=== PATIENT | male | born 1995 | race Caucasian/White ===

== ENCOUNTER 2017-04-10 05:25 | Emergency (ER) | payer SELFPAY ==
[2017-04-10 06:22] LABS: ABSOLUTE BASOPHILS # (AUTO) 0.1 10^3/uL (0.0-0.2); ABSOLUTE EOSINOPHILS # (AUTO) 0.2 10^3/uL (0.0-0.6); ABSOLUTE LYMPHOCYTES (AUTO) 2.1 10^3/uL (0.5-4.7); ABSOLUTE MONOCYTES (AUTO) 0.8 10^3/uL (0.1-1.4); ABSOLUTE NEUT (AUTO) 8.8 10^3/uL (1.7-8.2); BASOPHILS % (AUTO) 0.4 % (0-2); EOSINOPHILS % (AUTO) 1.5 % (0-6); HEMATOCRIT 43.7 % (37.9-51.0); HEMOGLOBIN 14.7 g/dL (13.5-17.0); HGB HCT DIFFERENCE 0.4; LYMPHOCYTES % (AUTO) 17.5 % (13-45); MEAN CORPUSCULAR HGB CONC 33.7 g/dL (32.0-36.0); MEAN CORPUSCULAR VOLUME 86 fl (80-97); RED BLOOD COUNT 5.09 10^6/uL (4.35-5.55); RED CELL DISTRIBUTION WIDTH 12.9 % (11.5-14.0); SEGMENTED NEUTROPHILS % (AUTO) 73.6 % (42-78); WHITE BLOOD COUNT 11.9 10^3/uL (4.0-10.5)
[2017-04-10 06:35] LABS: ALANINE AMINOTRANSFERASE 29 U/L (21-72); ALBUMIN 4.4 g/dL (3.5-5.0); ALKALINE PHOSPHATASE 61 U/L (38-126); ANION GAP 12 (5-19); ASPARTATE AMINO TRANSFERASE 16 U/L (17-59); BILIRUBIN,DIRECT 0.2 mg/dL (0.0-0.4); BILIRUBIN,TOTAL 0.6 mg/dL (0.2-1.3); BLOOD UREA NITROGEN 7 mg/dL (7-20); CALCIUM 9.3 mg/dL (8.4-10.2); CARBON DIOXIDE 24 mmol/L (22-30); CHLORIDE 104 mmol/L (98-107); CREATININE RESULT 1.14 mg/dL (0.52-1.25); GLUCOSE 101 mg/dL (75-110); POTASSIUM 3.5 mmol/L (3.6-5.0); SODIUM 139.5 mmol/L (137-145)
[2017-04-10 06:36] LABS: ALCOHOL < 10 mg/dL (NONE DETECTED)
--- NOTE | 2017-04-10 07:20 | ER Document Report ---
ED General - General Chief Complaint: Suicidal Ideation Stated Complaint: SUICIDAL IDEATION Time Seen by Provider: 04/10/17 06:06 Mode of Arrival: Ambulatory Information source: Patient TRAVEL OUTSIDE OF THE [place] IN LAST 30 DAYS: No - HPI Notes: Patient is a 21-year-old male presents emergency department with report of depression with suicidal ideation that he has had for several months. The patient states he was in the for 2-1/2 years and got out of the several months ago. The patient reports the last week he has been staying in a motel and has no place to stay now. The patient states he has family in [place]. He reports a history of depression and a previous psychiatric hospitalization in the past. The patient currently does not have a job, stating that he was working temporary side jobs up until recently about a month ago. The patient denies any homicidal ideation or hallucinations. He states he has previously been on antidepressants in the past but currently is not. No overdose. No history of alcohol or drug use or abuse. Patient reports generalized pain but denies any recent injury and has no focal area of any pain. Past Medical History - General Information source: Patient - Social History Smoking Status: Never Smoker Frequency of alcohol use: None Drug Abuse: None Family History: Reviewed & Not Pertinent Patient has suicidal ideation: Yes Patient has homicidal ideation: Yes Renal/ Medical History: Denies: Hx Peritoneal Dialysis Review of Systems - Review of Systems Notes: REVIEW OF SYSTEMS: CONSTITUTIONAL : Denies fever, chills, or sweats. Denies recent illness. EENT: Denies eye, ear, throat, or mouth pain or symptoms. Denies nasal or sinus congestion or discharge. Denies throat, tongue, or mouth swelling or difficulty swallowing. CARDIOVASCULAR: Denies chest pain. Denies palpitations or racing or irregular heart beat. Denies ankle edema. RESPIRATORY: Denies cough, cold, or chest congestion. Denies shortness of breath, difficulty breathing, or wheezing. GASTROINTESTINAL: Denies abdominal pain or distention. Denies nausea, vomiting , or diarrhea. Denies blood in vomitus, stools, or per rectum. Denies black, tarry stools. Denies constipation. GENITOURINARY: Denies difficulty urinating, painful urination, burning, frequency, blood in urine, or discharge. MUSCULOSKELETAL: Denies back or neck pain or stiffness. Denies joint pain or swelling. SKIN: Denies rash, lesions or sores. HEMATOLOGIC : Denies easy bruising or bleeding. LYMPHATIC: Denies swollen, enlarged glands. NEUROLOGICAL: Denies confusion or altered mental status. Denies passing out or loss of consciousness. Denies dizziness or lightheadedness. Denies headache. Denies weakness or paralysis or loss of use of either side. Denies problems with gait or speech. Denies sensory loss, numbness, or tingling. Denies seizures. PSYCHIATRIC: Denies anxiety or stress. Denies homicidal ideation. ALL OTHER SYSTEMS REVIEWED AND NEGATIVE. Dictation was performed using Stream[employer] recognition software Physical Exam - Vital signs Vitals: Temp Pulse Resp BP Pulse Ox 98.4 F 100 14 137/95 H 96 04/10/17 05:28 04/10/17 05:28 04/10/17 05:28 04/10/17 05:28 04/10/17 05:28 - Notes Notes: PHYSICAL EXAMINATION: GENERAL: Well-appearing, well-nourished and in no acute distress. HEAD: Atraumatic, normocephalic. EYES: Pupils equal round and reactive to light, extraocular movements intact, sclera anicteric, conjunctiva are normal. ENT: Nares patent, oropharynx clear without exudates. Moist mucous membranes. NECK: Normal range of motion, supple without lymphadenopathy LUNGS: Breath sounds clear to auscultation bilaterally and equal. No wheezes rales or rhonchi. HEART: Regular rate and rhythm without murmurs ABDOMEN: Soft, nontender, nondistended abdomen. No guarding, no rebound. No masses appreciated. Musculoskeletal: Normal range of motion, no pitting or edema. No cyanosis. Patient describes diffuse pain, but there is nothing reproducible. No erythema or swelling. NEUROLOGICAL: Cranial nerves grossly intact. Normal speech, normal gait. Normal sensory, motor exams PSYCH: Flat affect. Low voice. Reports suicidal ideation without specific plan. Denies homicidal ideation or hallucinations. SKIN: Warm, Dry, normal turgor, no rashes or lesions noted. Patient describes diffuse pain, but there is no reproducible pain and a Course - Re-evaluation Re-evalutation: 04/10/17 07:20 Patient will be medically cleared. Vital signs are stable. Psychiatric consultation will be ordered. IVC papers are filed. Lab work is pending. - Vital Signs Vital signs: Temp Pulse Resp BP Pulse Ox 98.4 F 100 14 137/95 H 96 04/10/17 05:28 04/10/17 05:28 04/10/17 05:28 04/10/17 05:28 04/10/17 05:28 - Laboratory Result Diagrams: 04/10/17 06:12 04/10/17 06:12 Laboratory results interpreted by me: 04/10/17 04/10/17 06:12 06:12 WBC 11.9 H Absolute Neutrophils 8.8 H Potassium 3.5 L AST 16 L Salicylates < 1.0 L Acetaminophen < 10 L - EKG Interpretation by Mt EKG shows normal: Sinus rhythm Additional EKG results interpreted by me: 04/10/17 07:21 EKG as interpreted by sd showed normal sinus rhythm heart rate of 81. There is no gross evidence for acute CT or ischemia identified. Discharge - Discharge Clinical Impression: Suicidal ideation Depression Qualifiers: Depression Type: unspecified Qualified Code(s): F32.9 - Major depressive disorder, single episode, unspecified
[2017-04-10 08:02] LABS: APPEARANCE,URINE SLIGHTLY-CLOUDY; BILIRUBIN,URINE NEGATIVE (NEGATIVE); GLUCOSE, URINE NEGATIVE (NEGATIVE); KETONES,URINE TRACE mg/dL (NEGATIVE); LEUKOCYTE ESTERASE,URINE TRACE (NEGATIVE); NITRITE,URINE NEGATIVE (NEGATIVE); PROTEIN,URINE NEGATIVE (NEGATIVE); URINE SPECIFIC GRAVITY 1.015; UROBILINOGEN,URINE NEGATIVE mg/dL (<2.0)
--- NOTE | 2017-04-10 08:08 | EKG REPORT ---
SEVERITY:- NORMAL ECG - SINUS RHYTHM : Confirmed by: Jeff Edwards MD 10-Apr-2017 08:07:34
[2017-04-10 08:25] LABS: URINE BARBITURATES SCREEN NEGATIVE; URINE METHADONE SCREEN NEGATIVE; URINE OPIATES LOW NEGATIVE; URINE PHENCYCLIDINE SCREEN NEGATIVE
--- NOTE | 2017-04-10 16:29 | ER Document Report ---
Doctor's Note Notes: 04/10/17 16:29 04/10/17 19:09 As the rounding physician for our psychiatric patients, I have reviewed the chart, vitals, lab work. Patient has been examined and noted to be stable, pt was resting comfortably throughout the day . Mental health offered suggestions for meds which will be followed
[2017-04-10] MEDS ORDERED: NAPROXEN 250 MG TABLET PO ONE (17:21)
[2017-04-10] MEDS ORDERED: HYDROXYZINE PAMOATE 50 MG CAPSULE PO PRN (18:00)
[2017-04-10] MEDS ORDERED: NICOTINE 21 MG/24 HR PATCH.TD24 TD ONE (18:00)
[2017-04-10] MEDS ORDERED: FLUOXETINE HCL 20 MG CAPSULE PO SCH (22:00)
--- NOTE | 2017-04-11 06:53 | ER Document Report ---
ED Psych Disorder / Suicide - General Chief Complaint: Suicidal Ideation Stated Complaint: SUICIDAL IDEATION Time Seen by Provider: 04/10/17 06:06 Mode of Arrival: Ambulatory Information source: Patient TRAVEL OUTSIDE OF THE [place] IN LAST 30 DAYS: No - HPI Patient complains to provider of: Suicidal ideation Onset: Other Onset was: Cannot confirm Suicide Risk Factors: Depressed, Lack of social support, Male, Other mental health dx. Situational problems related to: Lost job, Other - homeless Associated symptoms: Depressed - Initially, Flat affect - Initially, Irritable - Later in the evening around dinner time Similar symptoms previously: No - Unsure Recently seen / treated by doctor: No - Unsure Notes: Patient is a 21 year old male who presented to the ED late evening/parish nurse due to SI. ED Physician petitioned for IVC. Patient is difficult to arouse this morning. His eyelids appear swollen and were heavy. He was unable to stay awake to even answer yes/no to questions. Patient slept throughout most of the day. Attending nurse noted she had woke him a couple different times, he would arouse minimally, and then go back to sleep. Around late afternoon attempted consult again. Patient was startled when he first woke up. His eyelids were still swollen (not as much) and heavy, and his eyes were bloodshot. He was able to stay awake with continued prompting. He denied taking any kind of medication and had not been administered any while in the ED so the reason for the significant lethargy was unknown. Patient stated he doesn't sleep much due to anxiety and depression. He denied having a current outpatient MH provider or being on medications at this time. He identified when he was in the [place] had his last prescribed regimen was Gabapentin, Prozac, and Clonidine. He could not recall other medications he had been on previously. He acknowledged he had gotten into trouble for underage drinking while in the [place], had been prescribed medications and was late for a check in, which resulted in being MJP'd. He responded with "not really" when asked about current thoughts of wanting to harm/hurt/kill self. He denied any previous SI attempts. He refused collateral, noted he is from [place] which is where family is, and there was no emergency contact provided. He denied having VA Benefits or any other insurance. He stated if he were discharged he would stay in his car until he loses that too. He reported he had not been to the local homeless custodial and said he would not utilize it now. Later evening around dinner time patient became irritable and demanding. He stated his anxiety is severe and staying in the ED would increase it. He noted he had been out of it earlier and was adamant he had not taken any drugs, even O -T-C, prior to arrival. He stated Prozac 20MG will not do anything for him, commented on how a large dosage of Percocet does nothing for him, and stated Adderall is what helps him calm down and focus. He admitted to self medicating at times but not consistently. Patient appeared more restless at this later time in the day. Patient was not easily aroused throughout the day. He at times became alert. Later in the day it was obvious he was alert and oriented to place, person, and situation. He had to ask the time of day. He presented depressed with flat affect initially, although lethargic for unknown reason. Later in the day he appeared irritable and restless. He was able to be redirected. He said "not really" to current SI and denied HI. He did not appear to be responding to internal stimuli AEB once alert and oriented his fair eye contact, ability to stay on topic, and carrying on dialogue conversation. Thought processes were linear by dinner time. Conversational speech was initially mumbled and difficult to understand, later in the day it was WNL for rate, tone, and prosody. Intellectual abilities are estimated to be average. Insight, judgment and impulse control are poor AEB lethargy for most of the day. Diagnosis: 311 (F32.9) Unspecified Depressive Disorder Impression/Plan: Recommendation to maintain IVC. Patient is lethargic as if under the influence or coming down from a substance, however UDS negative for everything. He was initially unable to engage in evaluation. He slept most of the day. He would not provide collateral, no emergency contact listed, so no additional information obtained. Will reassess in the morning since he became more alert and oriented by dinner time. Consulted with Dr. Barnard regarding the management and care of patient. - Related Data Allergies/Adverse Reactions: No Known Allergies Allergy (Unverified 04/10/17 16:29) Home Medications: Current Home Medications Unobtainable [Unobtainable] 04/10/17 [History] Past Medical History - General Information source: Patient - Social History Smoking Status: Current Every Day Smoker Chew tobacco use (# tins/day): No Frequency of alcohol use: Occasional Drug Abuse: None Family History: Reviewed & Not Pertinent Patient has suicidal ideation: Yes Patient has homicidal ideation: Yes Renal/ Medical History: Denies: Hx Peritoneal Dialysis Psychiatric Medical History: Reports: Hx Bipolar Disorder, Hx Depression Physical Exam - Vital signs Vitals: Temp Pulse Resp BP Pulse Ox 98.4 F 100 14 137/95 H 96 04/10/17 05:28 04/10/17 05:28 04/10/17 05:28 04/10/17 05:28 04/10/17 05:28 Course - Vital Signs Vital signs: Temp Pulse Resp BP Pulse Ox 97.6 F 63 16 107/67 97 04/10/17 16:20 04/10/17 16:20 04/10/17 16:20 04/10/17 16:20 04/10/17 16:20 - Laboratory Result Diagrams: 04/10/17 06:12 04/10/17 06:12 Laboratory results interpreted by me: 04/10/17 04/10/17 04/10/17 06:12 06:12 07:40 WBC 11.9 H Absolute Neutrophils 8.8 H Potassium 3.5 L AST 16 L Urine Ketones TRACE H Ur Leukocyte Esterase TRACE H Salicylates < 1.0 L Acetaminophen < 10 L Discharge - Discharge Clinical Impression: Suicidal ideation Depression Qualifiers: Depression Type: unspecified Qualified Code(s): F32.9 - Major depressive disorder, single episode, unspecified
--- NOTE | 2017-04-11 08:22 | ER Document Report ---
Doctor's Note Notes: 04/11/17 08:21 Patient seen and evaluated by me. Vital signs reviewed. Patient is resting comfortably. Patient denies any specific complaint. Awaiting mental health recommendations.
--- NOTE | 2017-04-11 11:09 | ER Document Report ---
Doctor's Note Notes: 04/11/17 11:07 Patient seen by mental health. Per their request patient be discharged home with appropriate follow-up. Patient will be given prescription for Prozac 20 mg daily. Discharge - Discharge Clinical Impression: Suicidal ideation Depression Qualifiers: Depression Type: unspecified Qualified Code(s): F32.9 - Major depressive disorder, single episode, unspecified Condition: Fair Disposition: HOME, SELF-CARE Additional Instructions: DEPRESSION: Your evaluation reveals that you have mental depression. While symptoms may be vague, they often include disturbance of sleep, fatigue, loss of appetite , and general loss of interest in life. While depression may be a side effect of drugs, or a reaction to a major change in your life, many cases have no known cause. If depression is acute, and related to a major loss in your life, you can expect it to clear completely with time. If you have been depressed a long time , are prone to repeated bouts of depression or low mood, or have been thinking of suicide, get help. Depression can be treated with anti-depressant medication and counselling. Long-term depression will often take a few weeks to clear, even with appropriate medication. Follow-up care is important. SUICIDAL IDEATION: Suicidal ideation is a common medical term for thoughts about suicide, which may be as detailed as a formulated plan, without the suicidal act itself. Although most people who undergo suicidal ideation do not commit suicide, some go on to make suicide attempts. The range of suicidal ideation varies greatly from fleeting to detailed planning, role playing, and unsuccessful attempts. While thoughts about suicide are common, most people do not carry out serious actions to commit suicide. Based upon your evaluation and discussion with you, we do not believe you are currently at risk to act upon your thoughts of suicide. You have agreed to return to the Emergency Department, at any time , if you feel inclined to act upon your suicidal thoughts. You should follow up with [facility] or [facility] as a walk in immediately upon discharge to initiate mental health services. Prescriptions: Fluoxetine HCl [Prozac 20 mg Capsule] 20 mg PO DAILY #30 capsule Referrals: [facility][1] Human Services [Outside] - 04/11/17 11:45 am
[2017-04-11 11:47] VITALS: BP 111/60
== END 2017-04-11 11:30 | disposition home or self-care (01) ==
LOC: ER 05:25
DX: F32.9 Major depressive disorder, single episode, unspecified (principal); F17.200 Nicotine dependence, unspecified, uncomplicated
CPT/HCPCS: 36415; 80053; 80307; 81001; 84443; 85025; 93005; 93010; 99285